=== PATIENT | male | born 1955 | race Caucasian/White ===

== ENCOUNTER → 2016-10-18 | Outpatient (CLI) | payer BC ==
[2016-10-18 15:09] LABS: Blood Urea Nitrogen 15 mg/dL (9-20); Non-African American GFR(MDRD) >60 (>60 ml/min/1.73 sqM)
== END | disposition home or self-care (01) ==
LOC: LABWHC1 14:12
PROVIDERS: ATTEND Surgery Vascular Surgery
DX: I87.8 Other specified disorders of veins (principal)
CPT/HCPCS: 36415; 82565; 84520

== ENCOUNTER → 2019-07-31 | Outpatient (CLI) | payer BC ==
--- NOTE | 2019-07-31 13:48 | MR ---
EXAMINATION TYPE: MR iac wo/w con DATE OF EXAM: 07/31/2019 COMPARISON: HISTORY: Hearing loss, left TECHNIQUE: Multiplanar, multisequence images of the internal auditory canals with small [id number] and high r esolution images is performed without and with IV contrast, utilizing 13 mL intravenous Gadavist . FINDINGS: Diffusion weighted images demonstrate no evidence of a recent infarct or other diffusion ab normality. There is no extra-axial fluid collection or significant white matter signal abnormality. The ventricular system and cisternal spaces are normal in size and appearance. There is cerebral spi nal fluid signal intensity focus posterior to the cerebellum to the left of midline and in the midlin e, area measures approximately 5.1 cm in greatest transverse dimension by 3.4 cm in AP dimension by 2 .5 cm in cephalad to caudal dimension and show some local mass effect on the cerebellum consistent wi th arachnoid cyst. No evident cerebellopontine angle mass. Internal auditory canals show symmetric ap pearance with ectatic appearance bilaterally, are within normal limits. The brain volume is age appro priate. Midline structures demonstrate partially empty sella, corpus callosum is normal as is the cervical me dullary junction. The craniocervical junction appears within normal limits. Post contrast images de monstrate no abnormal enhancement. The dural venous sinuses appear patent. The visualized sinuses are remarkable for some minimal mucosal disease in the maxillary sinuses, ethmoid air cells, and the isaac bes are intact. IMPRESSION: There is an arachnoid cyst in the posterior fossa. No evident cerebellopontine angle mass . Ectatic appearance along the internal auditory canals are symmetric and likely normal variant juan daniel recinos.
== END | disposition home or self-care (01) ==
LOC: RADMRIMAIN 09:45
PROVIDERS: ATTEND Otolaryngology
DX: G93.0 Cerebral cysts (principal); H91.92 Unspecified hearing loss, left ear
CPT/HCPCS: 70553; A9585

== ENCOUNTER → 2021-01-06 | Outpatient (CLI) | payer MEDICARE | END | disposition home or self-care (01) | LOC: LABWHC1 08:49 | PROVIDERS: ATTEND Internal Medicine Interventional Cardiology | DX: I25.10 Atherosclerotic heart disease of native coronary artery without angina pectoris (principal); E05.90 Thyrotoxicosis, unspecified without thyrotoxic crisis or storm | CPT/HCPCS: 36415; 84439; 84443 ==

== ENCOUNTER → 2021-04-14 | Outpatient (CLI) | payer MEDICARE ==
[2021-04-14 16:39] LABS: African American GFR (CKD) 71 (>60 ml/min/1.73 sqM); Blood Urea Nitrogen 31 mg/dL (9-20); Calcium 9.7 mg/dL (8.4-10.2); Chloride 83 mmol/L (98-107); Glucose 169 mg/dL (74-99); Non-African American GFR(CKD) 62 (>60 ml/min/1.73 sqM); Potassium 3.3 mmol/L (3.5-5.1); Sodium 137 mmol/L (137-145)
[2021-04-14 17:28] LABS: Anion Gap 13 mmol/L; Carbon Dioxide 41 mmol/L (22-30)
== END | disposition home or self-care (01) ==
LOC: LABWHC1 15:42
PROVIDERS: ATTEND Internal Medicine Interventional Cardiology
DX: I50.9 Heart failure, unspecified (principal); I25.10 Atherosclerotic heart disease of native coronary artery without angina pectoris
CPT/HCPCS: 36415; 80048; 83735

== ENCOUNTER → 2021-04-19 | Outpatient (CLI) | payer MEDICARE ==
[2021-04-19 18:47] LABS: HCT 38.1 % (39.6-50.0); HGB 12.6 g/dL (13.0-17.0); MCH 31.7 pg (27.0-32.0); MCHC 33.1 g/dL (32.0-37.0); MCV 95.7 fL (80.0-97.0); Mean Platelet Volume 9.6 fL (9.5-12.2); Platelet Count 350 X 10*3/uL (140-440); RBC 3.98 X 10*6/uL (4.40-5.60); RDW 13.4 % (11.5-14.5); WBC 9.52 X 10*3/uL (4.50-10.00)
[2021-04-20 05:58] LABS: African American GFR (CKD) 59.8 (60.0-200.0); Anion Gap 14.8 mmol/L (4.00-12.00); BUN/Creat Ratio 27.86 Ratio (12.00-20.00); Calcium 9.9 mg/dL (8.7-10.3); Carbon Dioxide 38.2 mmol/L (21.6-31.8); Non-African American GFR(CKD) 51.6 (60.0-200.0); Potassium 3.5 mmol/L (3.5-5.5)
== END | disposition home or self-care (01) ==
LOC: LABWHC1 12:24
PROVIDERS: ATTEND Internal Medicine Interventional Cardiology
DX: I25.10 Atherosclerotic heart disease of native coronary artery without angina pectoris (principal); I50.9 Heart failure, unspecified
CPT/HCPCS: 36415; 80048; 85027

== ENCOUNTER → 2021-04-28 | Outpatient (CLI) | payer MEDICARE ==
[2021-04-28 15:26] LABS: HCT 39.1 % (39.0-53.0); HGB 13.2 gm/dL (13.0-17.5); MCH 32.7 pg (25.0-35.0); MCHC 33.8 g/dL (31.0-37.0); MCV 96.8 fL (80.0-100.0); Mean Platelet Volume 8.1; Platelet Count 361 k/uL (150-450); RBC 4.04 m/uL (4.30-5.90); WBC 10.5 k/uL (3.8-10.6)
[2021-04-28 15:37] LABS: Potassium 3.3 mmol/L (3.5-5.1)
== END | disposition home or self-care (01) ==
LOC: LABPAT 14:44
PROVIDERS: ATTEND Internal Medicine Clinical Cardiac Electrophysiology
DX: Z01.812 Encounter for preprocedural laboratory examination (principal); I48.3 Typical atrial flutter
CPT/HCPCS: 36415; 80051; 82565; 84520; 85027

== ENCOUNTER 2021-05-05 11:56 | Day surgery (SDC) | payer MEDICARE ==
[2021-05-04 08:49] VITALS: BMI 43.0
[2021-05-05] MEDS ORDERED: SODIUM CHLORIDE 0.9% 1,000 ML IV ONE (12:17)
[2021-05-05 12:28] LABS: Glucose,Whole Blood 180 mg/dL (75-99)
[2021-05-05] MEDS ORDERED: LIDOCAINE 1% INJ 10MG/ML (20 ML MDV) ONE ×2 (16:20→16:28)
[2021-05-05] MEDS ORDERED: METOPROLOL TARTRATE 5 MG/5 ML VIAL IVP ONE (16:28)
[2021-05-05] MEDS ORDERED: ROCURONIUM 10 MG/ML (5 ML VIAL) IV ONE ×2 (16:28)
[2021-05-05] MEDS ORDERED: SUGAMMADEX SODIUM 500 MG/5 ML SDV IV ONE (16:28)
[2021-05-05] MEDS ORDERED: GLYCOPYRROLATE 0.2 MG/ML 2 ML VIAL ONE (16:28)
[2021-05-05] MEDS ORDERED: fentaNYL (PF) 50 MCG/ML 2 ML AMP ONE (16:28)
[2021-05-05] MEDS ORDERED: NEOSTIGMINE 1 MG/ML 10 ML VIAL ONE (16:28)
[2021-05-05] MEDS ORDERED: SUCCINYLCHOLINE CHLORIDE VIAL 200 MG/10 ML VIAL IV ONE (16:28)
[2021-05-05] MEDS ORDERED: PROPOFOL 10 MG/ML 20 ML VIAL IV ONE (16:28)
[2021-05-05] MEDS ORDERED: LIDOCAINE 1% INJ 10MG/ML (20 ML MDV) SQ ONE (17:09)
[2021-05-05] MEDS ORDERED: HEPARIN SODIUM (1,000 UNIT/ML) 1,000 UNIT in SODIUM CHLORIDE 0.9% 1,000 ML IRRIGATION ONE (17:25)
--- NOTE | 2021-05-05 19:17 | P.EPPROC ---
- EP Procedure Note Electrophysiology Procedure Note: Diagnosis Typical atrial flutter noted as an outpatient Patient brought in for atrial flutter ablation Procedure Diagnostic EP study/Typical atrial flutter ablation Cardioversion for atrial fibrillation Details of procedure Patient was brought to the EP lab in a fasting state. Written informed consent was obtained prior to the procedure. The right and left groins were prepped and draped as a protocol 1% lidocaine was used for local anesthesia The procedure was performed under general anesthesia He was found to be in atrial fibrillation start study Venous access was obtained from the right left femoral veins and Bi V these diagnostic mapping and ablation catheter placed intracardiac echo cath was placed Intracardiac echocardiography revealed no evidence for intracardiac mass or thrombus. No mass in the left atrial appendage Electrical cardioversion was performed 200 J biphasic shock was successfully cardiovert to the patient to sinus rhythm Intracardiac echocardiography was performed 3-D electro-anatomic mapping was performed The cavo tricuspid isthmus was mapped RF ablation was performed A complete line of block was made from the tricuspid annulus to the eustachian ridge This line was interrogated with differential pacing, bidirectional block noted Isthmus conduction time greater than 200 milliseconds Widely split potentials along the line Non-capture along the line with high output pacing Sinus cycle length in the 700s Sinus node recovery times at 605 100 ms were 900 ms and 1023 ms Corresponding chronic sinus recovery times abnormal AV node Wenckebach block 480 ms AH interval 65 ms and HV interval 58 ms QRS showed a right bundle branch block pattern 176 ms Intracardiac echo revealed left ventricle hypertrophy, severe with preserved systolic function No pericardial effusion before or after the procedure Patient called the procedure well without any acute complications Vascade closure of all puncture sites performed successfully
[2021-05-05] MEDS ORDERED: ACETAMINOPHEN IV (For NPO) 1,000 MG in EMPTY BAG 1 BAG IVPB ONE (19:18)
[2021-05-05] MEDS ORDERED: ACETAMINOPHEN TAB 325 MG TAB PO PRN (19:18)
--- NOTE | 2021-05-05 19:23 | P.PRLE ---
RE: Remy Gupta Dear Johnathon Mr. Gupta underwent a diagnostic EP study and typical atrial flutter ablation However he was also in atrial fibrillation and he had to undergo electrical cardioversion I asked him to reduce the dose of metoprolol but he must continue ELIQUIS I suspect that we will see persistent atrial fibrillation in the near future which will have to be addressed to Needless to say, Sleep apnea assessment and minimizing alcohol intake would be crucial to future success with A. fib management Thank you for entrusting me with the care of the patient Warm regards Sincerely Robert Vicente
[2021-05-05] MEDS ORDERED: HYDROmorphone 0.5 MG/0.5 ML SYRINGE IVP ONE (19:30)
[2021-05-05] MEDS ORDERED: ACETAMINOPHEN IV (For NPO) 1,000 MG/100 ML VIAL IVPB ONE (19:32)
[2021-05-05] MEDS ORDERED: LABETALOL 5 MG/ML VIAL MDV IVP ONE (19:54)
[2021-05-05] MEDS: LACTATED RINGERS 1,000 ML IV SCH (20:37)
[2021-05-05 20:46] VITALS: RESP 20
[2021-05-05 21:26] LABS: Glucose,Whole Blood 164 mg/dL (75-99)
[2021-05-05] MEDS: APIXABAN 5 MG TAB PO SCH (22:09)
[2021-05-05] MEDS: SODIUM CHLORIDE 0.9% 1,000 ML IV SCH (22:09)
[2021-05-06 02:24] VITALS: PULSE 79
[2021-05-06] MEDS: LACTATED RINGERS 1,000 ML IV SCH (05:21)
[2021-05-06] MEDS: SODIUM CHLORIDE 0.9% 1,000 ML IV SCH (06:08)
[2021-05-06] MEDS ORDERED: NITROGLYCERIN SL TABS 0.4 MG TAB SUBLINGUAL PRN (07:42)
[2021-05-06] MEDS ORDERED: MECLIZINE 25 MG TAB PO PRN (07:42)
[2021-05-06 08:21] VITALS: BP 146/81; TEMP 98
[2021-05-06] MEDS: APIXABAN 5 MG TAB PO SCH (08:49)
[2021-05-06] MEDS ORDERED: METOPROLOL TARTRATE 25 MG TAB PO SCH (09:00)
[2021-05-06] MEDS ORDERED: ASPIRIN 81 MG PO SCH (09:00)
[2021-05-06] MEDS ORDERED: FUROSEMIDE 40 MG TAB PO SCH (09:00)
[2021-05-06] MEDS ORDERED: hydroCHLOROthiazide 25 MG TAB PO SCH (09:00)
[2021-05-06] MEDS ORDERED: ASCORBIC ACID 500 MG TAB PO SCH (09:00)
[2021-05-06] MEDS ORDERED: NON FORMULARY DRUG (Empagliflozin [Jardiance] 25 MG Tablet) PO SCH (09:00)
[2021-05-06] MEDS ORDERED: FERROUS SULFATE 325 MG TAB PO SCH (09:00)
[2021-05-06] MEDS ORDERED: POTASSIUM CHLORIDE ER 20 MEQ TAB.ER PO SCH (09:00)
--- NOTE | 2021-05-06 11:23 | P.PN ---
Progress Note - Text Progress Note Date: 05/06/21 Patient has difficulty ambulating and requires a cane at the time of discharge to ensure safety and to prevent falls. Case management notified of equipment needs.
--- NOTE | 2021-05-06 19:44 | DS ---
DISCHARGE SUMMARY The patient was admitted for management of atrial flutter which is quite symptomatic with tiredness, fatigue and shortness of breath. He underwent atrial flutter ablation. However, he was found to be in atrial fibrillation also and therefore electrical cardioversion was performed. This morning, his groins have healed well. Heart sounds are regular and normal. Breath sounds are clear. He does have lower extremity edema with weeping along the skin. He also has left ventricular hypertrophy. IMPRESSION: 1. Typical atrial flutter, status post ablation. 2. Persistent atrial fibrillation, status post electrical cardioversion. 3. Hypertension. 4. Obstructive sleep apnea. PLAN: 1. Discharge home today on anticoagulation. The dose of metoprolol has been reduced to 75 mg twice daily. The afternoon dose has been discontinued. He will follow up with Dr. Santiago in a week. He already has appointment. Anticoagulation should continue lifelong. 2. I discussed the importance of prevention of atrial fibrillation with weight reduction, sleep apnea treatment, minimizing alcohol intake, preferably complete abstinence and hypertension management. The patient expressed an understanding and agreement. AL / BRANDENN: [id number] /
[2021-05-06] MEDS ORDERED: ATORVASTATIN 80 MG TAB PO SCH (21:00)
== END 2021-05-06 13:30 | disposition home or self-care (01) ==
LOC: CATHEP 11:56 → 6NMEDSUR 20:21 → CATHEP 05-06 13:30
PROVIDERS: ATTEND Internal Medicine Clinical Cardiac Electrophysiology
DX: I48.3 Typical atrial flutter (principal); I10 Essential (primary) hypertension; G47.33 Obstructive sleep apnea (adult) (pediatric); I48.91 Unspecified atrial fibrillation; E11.9 Type 2 diabetes mellitus without complications; F17.200 Nicotine dependence, unspecified, uncomplicated
CPT/HCPCS: 92960; 93623; 93662; 93653; 97162; C1894; C1769 ×2; C1760; C1730; C1759; C1893; C1732; J0330; J2710; J2001; J3010; J1644; J0131; J2704; J1170

== ENCOUNTER → 2021-08-09 | Outpatient (CLI) | payer MEDICARE ==
[2021-08-09 21:57] LABS: African American GFR (CKD) 72.3 (60.0-200.0); Anion Gap 19.9 mmol/L (4.00-12.00); BUN/Creat Ratio 26.72 Ratio (12.00-20.00); Blood Urea Nitrogen 31.8 mg/dL (9.0-27.0); Calcium 9.7 mg/dL (8.7-10.3); Carbon Dioxide 32.7 mmol/L (21.6-31.8); Non-African American GFR(CKD) 62.4 (60.0-200.0); Potassium 3.8 mmol/L (3.5-5.5)
== END | disposition home or self-care (01) ==
LOC: LABWHC1 13:49
PROVIDERS: ATTEND Family Medicine
DX: R60.0 Localized edema (principal)
CPT/HCPCS: 36415; 80048

== ENCOUNTER 2021-08-11 07:46 | Inpatient (IN) | payer MEDICARE ==
[~2021-08-11 07:46] MED LIST: LIDOCAINE 1% (10MG/ML) FOR IV START INTRADERMA PRN
[2021-08-11 08:11] LABS: Glucose,Whole Blood 163 mg/dL (75-99)
[2021-08-11] MEDS: SODIUM CHLORIDE 0.9% 1,000 ML IV SCH ×2 (08:14→10:00)
[2021-08-11] MEDS ORDERED: PROPOFOL 10 MG/ML 20 ML VIAL IV ONE (09:00)
[2021-08-11] MEDS ORDERED: DEXTROSE 5% IN WATER 100 ML with AMIODARONE 300 MG IV ONE (09:30)
[2021-08-11] MEDS ORDERED: AMIODARONE 300 MG in D5W 250ml IV ONE (09:45)
[2021-08-11] MEDS ORDERED: MECLIZINE 25 MG TAB PO PRN (09:46)
[2021-08-11] MEDS ORDERED: AMIODARONE 360 MG in DEXTROSE 5% IN WATER 200 ML IV ONE ×2 (09:48)
[2021-08-11] MEDS ORDERED: FUROSEMIDE 10 MG/ML 4 ML VIAL IV STA (09:49)
--- NOTE | 2021-08-11 10:47 | HP ---
HISTORY AND PHYSICAL This is a 66-year-old morbidly obese gentleman with history of CAD, previous multivessel PCI of LAD and RCA. He also has obstructive sleep apnea, just started wearing CPAP. He has hypertension, diabetes, hyperlipidemia as well. He has developed atrial flutter, symptomatic and with rate control he improved in April. He went on to have an EP study followed by ablation of flutter, then had atrial fibrillation and required cardioversion. Since then he has done well, but for the last 3-4 weeks, he has gained over 20 pounds significant edema of lower extremities and shortness of breath. I saw him in the office yesterday and he was very faithful and compliant with the Eliquis 5 mg b.i.d. and therefore I brought him for cardioversion today. Electrical cardioversion was performed. He converted to sinus rhythm. He remains in sinus with a right bundle and PACs. His potassium was 3.8. However, he has significant heart failure clinically with an elevated JVD, significant lower extremity edema and weight gain. We will admit him to the hospital, aggressively diurese him intravenously and based on clinical course, we will make further recommendations. I will admit him to the observation unit and see if we can diurese him in the next 24 hours. PAST MEDICAL HISTORY: 1. CAD with multivessel PCI. 2. Obesity. 3. Hypertension. 4. Hyperlipidemia. 5. Type 2 diabetes mellitus. 6. Obstructive sleep apnea, wears CPAP for 3 weeks. ALLERGIES: THE PATIENT HAS A SIGNIFICANT ALLERGY TO MILLY AND ARB AND HAS DEVELOPED A SIGNIFICANT REACTION AND THEREFORE THESE MEDICINES WERE HELD. MEDICATIONS: Include aspirin 81 mg daily, Eliquis 5 mg b.i.d., Lipitor 80 mg daily, he also takes metolazone 5 mg daily, Lasix 40 mg daily, Jardiance 25 mg daily and metoprolol tartrate 25 mg 2 tablets b.i.d. EXAMINATION: Blood pressure is 120/80, pulse rate is about 80 per minute, irregular. HEENT unremarkable fundus was not examined. NECK is supple. There is 2 cm JVD. No carotid bruit. HEART exam reveals S1-S2 distant heart sounds, short systolic murmur. LUNGS revealed diminished air entry over bases. ABDOMEN is distended. Lower EXTREMITIES reveal 3 to 4+ edema with seeping edematous legs. Pulses are not palpable. CENTRAL NERVOUS SYSTEM: Grossly no focal deficits. IMPRESSION: 1. Biventricular probably more right-sided systolic heart failure. 2. Persistent atrial fibrillation, symptomatic. 3. Coronary artery disease with multivessel PCI. 4. Hypertension. 5. Type 2 diabetes mellitus. 6. Obstructive sleep apnea with CPAP. 7. Status post electrical cardioversion earlier today in sinus rhythm. RECOMMENDATIONS: We will place him on IV amiodarone, bolus of 300 mg and 6 hours of infusion followed by oral amiodarone. Lasix will be at 40 mg IV push and a 10 mg drip with potassium supplements. Resume his other medications. Tomorrow we will obtain a CBC, BMP and based on clinical course, I will make further recommendations. The patient has been advised to refrain from alcohol which seems to be a significant contributing factor. Prognosis remains guarded. MMODL / IJN: [id number] /
--- NOTE | 2021-08-11 11:03 | PCN ---
PROCEDURE NOTE PROCEDURE: Electrical cardioversion. DATE OF SERVICE: 08/11/2021. INDICATION: Persistent symptomatic atrial fibrillation. PROCEDURE NOTE: Under the influence of ultra short-acting intravenous anesthetic agent with the attendance of the anesthesiologist, a single shock of 200 joules was delivered to the chest wall with anterior and posterior patches in a synchronized fashion. He converted to sinus rhythm, had PACs, remained hemodynamically stable and neurologically intact. This was a successful electrical cardioversion. Results were discussed with the patient and family. I will keep him in the hospital to diurese him aggressively and also will give him amiodarone intravenously, then switch him to oral amiodarone after that. Discussed my thoughts with the patient and family. MMODL / IJN: [id number] /
[2021-08-11] MEDS: FUROSEMIDE 100 MG in SODIUM CHLORIDE 0.9% 90 ML IV SCH ×2 (12:16→20:40)
[2021-08-11] MEDS ORDERED: AMIODARONE IN DEXTROSE,ISO-OSM 360 MG/200 ML PLAST..BAG IV ONE (12:16)
[2021-08-11] MEDS: LACTATED RINGERS 1,000 ML IV SCH (14:57)
[2021-08-11 16:35] LABS: Glucose,Whole Blood 187 mg/dL (75-99)
[2021-08-11] MEDS: metFORMIN 500 MG TAB PO SCH (17:42)
[2021-08-11] MEDS: INSULIN ASPART (NovoLOG) 100 UNIT/ML VIAL SQ SCH ×2 (17:48→21:55)
[2021-08-11] MEDS: AMIODARONE 200 MG TAB PO SCH ×2 (17:49→21:56)
[2021-08-11 19:42] LABS: Glucose,Whole Blood 172 mg/dL (75-99)
[2021-08-11] MEDS ORDERED: METOPROLOL TARTRATE 25 MG TAB PO SCH (21:00)
[2021-08-11] MEDS: APIXABAN 5 MG TAB PO SCH (21:56)
[2021-08-11] MEDS: ATORVASTATIN 80 MG TAB PO SCH (21:56)
[2021-08-11] MEDS: METOPROLOL TARTRATE 50 MG TAB PO SCH (21:57)
[2021-08-11] MEDS: TEMAZEPAM 15 MG CAP PO PRN (23:11)
[2021-08-12] MEDS: FUROSEMIDE 100 MG in SODIUM CHLORIDE 0.9% 90 ML IV SCH ×2 (04:08→14:24)
[2021-08-12] MEDS: LACTATED RINGERS 1,000 ML IV SCH (04:29)
[2021-08-12 06:16] LABS: Glucose,Whole Blood 153 mg/dL (75-99)
[2021-08-12] MEDS: metFORMIN 500 MG TAB PO SCH ×2 (06:24→17:07)
[2021-08-12] MEDS: INSULIN ASPART (NovoLOG) 100 UNIT/ML VIAL SQ SCH ×4 (06:25→21:11)
[2021-08-12] MEDS: POTASSIUM CHLORIDE ER 20 MEQ TAB.ER PO SCH ×5 (06:48→21:24)
[2021-08-12 07:31] LABS: Basophils % (A) 0 %; Eosinophils # (A) 0.3 k/uL (0-0.7); Eosinophils % (A) 4 %; HCT 34.8 % (39.0-53.0); HGB 11.4 gm/dL (13.0-17.5); Lymphocytes % (A) 14 %; MCH 32.1 pg (25.0-35.0); MCHC 32.8 g/dL (31.0-37.0); Mean Platelet Volume 6.9; Monocytes # (A) 0.5 k/uL (0-1.0); Monocytes % (A) 7 %; Neutrophils # (A) 5.2 k/uL (1.3-7.7); Neutrophils % (A) 72 %; Platelet Count 355 k/uL (150-450); RBC 3.55 m/uL (4.30-5.90); RDW 14.7 % (11.5-15.5); WBC 7.2 k/uL (3.8-10.6)
[2021-08-12 07:44] LABS: Calcium 9.4 mg/dL (8.4-10.2); Magnesium 1.8 mg/dL (1.6-2.3); Potassium 3.2 mmol/L (3.5-5.1)
[2021-08-12] MEDS: ASPIRIN 81 MG PO SCH (08:23)
[2021-08-12] MEDS: APIXABAN 5 MG TAB PO SCH ×2 (08:23→21:20)
[2021-08-12] MEDS: METOPROLOL TARTRATE 50 MG TAB PO SCH ×2 (08:23→21:20)
[2021-08-12] MEDS: ASCORBIC ACID 500 MG TAB PO SCH (08:23)
[2021-08-12] MEDS: AMIODARONE 200 MG TAB PO SCH ×3 (08:23→21:21)
[2021-08-12] MEDS: FERROUS SULFATE 325 MG TAB PO SCH (08:23)
[2021-08-12] MEDS: SODIUM CHLORIDE 0.9% 1,000 ML IV SCH ×2 (08:27→11:00)
[2021-08-12] MEDS ORDERED: hydroCHLOROthiazide 25 MG TAB PO SCH (09:00)
[2021-08-12] MEDS ORDERED: POTASSIUM CHLORIDE ER 20 MEQ TAB.ER PO SCH (09:00)
[2021-08-12] MEDS ORDERED: Potassium Replacement Protocol 1 EACH MISC MISCELLANE PRN (10:44)
[2021-08-12] MEDS: Empagliflozin [Jardiance] PO SCH (11:00)
--- NOTE | 2021-08-12 11:36 | ECHOF ---
Referral Reason:LV FUNCTION MEASUREMENTS -------- HEIGHT: 180.3 cm WEIGHT: 140.2 kg BP: RVIDd: 3.2 cm (< 3.3) IVSd: 1.5 cm (0.6 - 1.1) LVIDd: 5.2 cm (3.9 - 5.3) LVPWd: 1.7 cm (0.6 - 1.1) IVSs: 2.4 cm LVIDs: 3.0 cm LVPWs: 1.8 cm Ao Diam: 3.6 cm (2.0 - 3.7) AV Cusp: 2.4 cm (1.5 - 2.6) LA Diam: 3.8 cm (2.7 - 3.8) MV EXCURSION: 20.607 mm (> 18.000) MV EF SLOPE: 41 mm/s (70 - 150) EPSS: 1.2 cm MV E Watson: 0.93 m/s MV DecT: 187 ms MV A Watson: 0.51 m/s MV E/A Ratio: 1.81 RAP: 5.00 mmHg RVSP: 36.61 mmHg FINDINGS -------- This was a technically difficult study with suboptimal views. The left ventricular size is normal. There is moderate concentric left ventricular hypertrophy. O verall left ventricular systolic function is normal with, an EF between 55 - 60 %. The right ventricle is mildly enlarged. The left atrial size is normal. The right atrial size is normal. Lumason used The aortic valve is trileaflet and appears structurally normal. The mitral valve is normal. Mild mitral regurgitation is present. The tricuspid valve appears structurally normal. Mild tricuspid regurgitation present. There is m ild pulmonary hypertension. The right ventricular systolic pressure, as measured by Doppler, is 36. 61mmHg. There is no pulmonic regurgitation present. The aortic root size is normal. IVC Not well visulized. There is no pericardial effusion. CONCLUSIONS -------- 1. The left ventricular size is normal. 2. There is moderate concentric left ventricular hypertrophy. 3. Overall left ventricular systolic function is normal with, an EF between 55 - 60 %. 4. The right ventricle is mildly enlarged. 5. Mild mitral regurgitation is present. 6. Mild tricuspid regurgitation present. 7. There is mild pulmonary hypertension. 8. The right ventricular systolic pressure, as measured by Doppler, is 36.61mmHg. 9. There is no pericardial effusion. CARE CONSULTANT: Alina Gonzalez RDCS
[2021-08-12 11:44] LABS: Glucose,Whole Blood 134 mg/dL (75-99)
--- NOTE | 2021-08-12 12:28 | PN ---
PROGRESS NOTE Mr. Gupta is in sinus rhythm. I admitted him yesterday because of atrial fib symptomatic with significant heart failure symptoms of and more so of right-sided failure. I performed cardioversion. He converted to sinus rhythm. He is maintaining sinus rhythm and I placed him on a Lasix drip. He diuresed very well. He lost more than 7.5 L of fluid and also lost nearly 8-9 pounds. He is in sinus, resting comfortably. Complains of being a little weak. Potassium was 3.0. This is being supplemented. Plan is to continue IV Lasix drip for at least for another 24 hours and then we will consider discharge after that. He has history of CAD, prior multivessel PCI, bilateral lower extremity edema is significant with some weeping and also mild cellulitis for which I started him on a Kefzol 1 g q.6 hours. He was also seen by Dr. Hurley at my request for wound care, who advised Silvadene dressings and antibiotics. We will increase activity and see how he does. He is currently on Eliquis 5 mg b.i.d. Vitals signs are stable. JVD 1 cm. No carotid bruit. S1-S2 heard normally. Short systolic murmur. Lungs revealed decent air entry. Abdomen is soft. Lower extremity edema is significant bilaterally but improved. PLAN: We will continue diuresis, supplement potassium. Repeat electrolytes, BUN, creatinine tomorrow and also magnesium. Advised to refrain from alcohol altogether. I will review his echocardiogram. MMODL / IJN: [id number] /
[2021-08-12 16:35] LABS: Glucose,Whole Blood 146 mg/dL (75-99)
[2021-08-12 19:47] VITALS: TEMP 97.9
[2021-08-12 19:59] LABS: Glucose,Whole Blood 208 mg/dL (75-99)
[2021-08-12 20:01] LABS: Glucose,Whole Blood 178 mg/dL (75-99)
[2021-08-12] MEDS: TEMAZEPAM 15 MG CAP PO PRN (21:19)
[2021-08-12] MEDS: ATORVASTATIN 80 MG TAB PO SCH (21:21)
[2021-08-13] MEDS: FUROSEMIDE 100 MG in SODIUM CHLORIDE 0.9% 90 ML IV SCH (00:06)
[2021-08-13] MEDS: LACTATED RINGERS 1,000 ML IV SCH (06:05)
[2021-08-13 06:16] LABS: Glucose,Whole Blood 164 mg/dL (75-99)
[2021-08-13] MEDS: INSULIN ASPART (NovoLOG) 100 UNIT/ML VIAL SQ SCH ×2 (06:30→12:12)
[2021-08-13] MEDS: metFORMIN 500 MG TAB PO SCH (06:30)
[2021-08-13] MEDS ORDERED: FUROSEMIDE 10 MG/ML 4 ML VIAL IV SCH (08:00)
[2021-08-13] MEDS ORDERED: metOLazone 5 MG TAB PO SCH (09:00)
[2021-08-13] MEDS ORDERED: METOPROLOL TARTRATE 25 MG TAB PO SCH ×2 (09:00→21:00)
[2021-08-13] MEDS: FERROUS SULFATE 325 MG TAB PO SCH (09:01)
[2021-08-13] MEDS: POTASSIUM CHLORIDE ER 20 MEQ TAB.ER PO SCH (09:01)
[2021-08-13] MEDS: ASPIRIN 81 MG PO SCH (09:01)
[2021-08-13] MEDS: ASCORBIC ACID 500 MG TAB PO SCH (09:02)
[2021-08-13] MEDS: APIXABAN 5 MG TAB PO SCH (09:02)
[2021-08-13] MEDS: Empagliflozin [Jardiance] PO SCH (09:02)
[2021-08-13] MEDS: AMIODARONE 200 MG TAB PO SCH (09:02)
[2021-08-13 09:11] VITALS: RESP 16
[2021-08-13 09:28] LABS: HCT 34.4 % (39.0-53.0); HGB 11.6 gm/dL (13.0-17.5); MCH 32.5 pg (25.0-35.0); MCHC 33.5 g/dL (31.0-37.0); Mean Platelet Volume 6.9; Platelet Count 383 k/uL (150-450); RBC 3.55 m/uL (4.30-5.90); RDW 14.5 % (11.5-15.5); WBC 8.1 k/uL (3.8-10.6)
[2021-08-13 09:53] LABS: Calcium 9.2 mg/dL (8.4-10.2); Potassium 3.2 mmol/L (3.5-5.1)
[2021-08-13 11:49] LABS: Glucose,Whole Blood 120 mg/dL (75-99)
[2021-08-13] MEDS ORDERED: POTASSIUM CHLORIDE ER 20 MEQ TAB.ER PO SCH (12:00)
[2021-08-13 12:23] VITALS: BP 122/65; PULSE 68
--- NOTE | 2021-08-13 15:10 | DS ---
DISCHARGE SUMMARY DATE OF ADMISSION: 08/11/2021 DATE OF DISCHARGE: 08/13/2021. DIAGNOSES: 1. Persistent atrial fibrillation. 2. Significant edema, anasarca with right-sided failure. 3. Coronary artery disease with history of prior PCI multiple vessels. 4. Type 2 diabetes. 5. Hypertension. 6. Hypercholesterolemia. HISTORY: Mr. Gupta was brought in for electrical cardioversion on August 11 because of atrial fibrillation. I performed a cardioversion successfully with a single shock of 200 joules. He had a significant volume overload and has gained about 22 pounds over the last 4 weeks. I advised that he should be in the hospital and we will diurese him aggressively because of massive edema of both lower extremities as well as the lower abdomen and upper thighs as well. We placed him on intravenous Lasix drip and with this he diuresed nearly 12-13 L and lost about 12 pounds. He developed some hypokalemia requiring replacement therapy. He maintained sinus rhythm. He also has some cellulitis of lower extremities with weeping of the areas. I requested Dr. Hurley to evaluate him. He was seen by Dr. Hurley. I placed him on Kefzol 1 g q.8 hours. After aggressive diuresis, patient insisted on going home. Therefore I will discharge him today around 3:00 pm or so and he will be on Keflex 500 mg t.i.d. for 1 week, he will also be on Jardiance at home 25 mg daily, Lipitor 80 mg daily, aspirin 81 mg daily, apixaban 5 mg b.i.d., amiodarone 200 mg t.i.d., Lasix will be 40 mg p.o. b.i.d. with metolazone 2.5 mg, 45 minutes before a.m. Lasix, metformin 1000 mg b.i.d., metoprolol tartrate 75 mg b.i.d., potassium 20 mEq t.i.d., his potassium was low at 3.2. I gave him some additional supplements. I will see him in the office on August 17 and he will call me if he has a question, concern or problem. Vital signs were stable. Heart rate was about 82, sinus. JVD 1 cm. No carotid bruit. S1-S2 heard normally but distantly short systolic murmur at the base. Lungs reveal improved air entry. Abdomen is distended, nontender. Lower extremities reveal improvement in edema. Pulses diminished. Central nervous system: No focal deficits. EKG revealed sinus mechanism, right bundle branch block pattern and PACs. PLAN: Discharge today. Follow up in the office within a week. Discharge instructions regarding activity, medications and diet were given. Advised to refrain from alcohol and any salt containing foods. Low-salt diet was encouraged. MMODL / IJN: [id number] /
[2021-08-14] MEDS ORDERED: metOLazone 2.5 MG TAB PO SCH (09:00)
--- NOTE | 2021-08-16 06:40 | CDI ---
Documentation Clarification Form Date: 08/16/21 From: Milagros Parson Admit Date: 08/12/2021 01:14:00 PM Patient Name: Remy Gupta Visit Number: [id number] Discharge Date: 08/13/2021 03:33:00 PM ATTENTION: The Clinical Documentation Specialists (CDI) and [facility] Coding Staff appreciate your assistance in clarifying documentation. Please respond to the clarification below the line at the bottom and electronically sign. The CDI & [facility] Coding staff will review the response and follow-up if needed. Please note: Queries are made part of the Legal Health Record. If you have any questions, please contact the author of this message via ITS. Dr. Sheryl Santiago, There is documentation of systolic congestive heart failure in the H&P. Additional clarification is requested. History/Risk Factors: atrial flutter ablated, hypertension, persistent atrial fibrillation cardioverted, CAD w PCI Clinical Indicators: Gained 20 pounds in the last 3-4 weeks with SOB. Elevated JVD, significant lower extremity edema. Treatment: Aggressively diurese Can you please clarify the acuity of systolic CHF? [ ] Acute systolic CHF [ ] Chronic systolic CHF [ ] Acute and chronic systolic CHF [ ] Other, please specify [ ] Unable to determine MTDD
--- NOTE | 2021-08-19 10:44 | CDI ---
Documentation Clarification Form Date: 08/16/2021 06:39:00 AM From: Milagros Parson Admit Date: 08/12/2021 01:14:00 PM Patient Name: Remy Gupta Visit Number: [id number] Discharge Date: 08/13/2021 03:33:00 PM ATTENTION: The Clinical Documentation Specialists (CDI) and [facility] Coding Staff appreciate your assistance in clarifying documentation. Please respond to the clarification below the line at the bottom and electronically sign. The CDI & [facility] Coding staff will review the response and follow-up if needed. Please note: Queries are made part of the Legal Health Record. If you have any questions, please contact the author of this message via ITS. Dr. Sheryl Santiago, There is documentation of systolic congestive heart failure in the H&P. Additional clarification is requested. History/Risk Factors: atrial flutter ablated, hypertension, persistent atrial fibrillation cardioverted, CAD w PCI Clinical Indicators: Gained 20 pounds in the last 3-4 weeks with SOB. Elevated JVD, significant lower extremity edema. Treatment: Aggressively diurese Can you please clarify the acuity of systolic CHF? [ ] Acute systolic CHF [ ] Chronic systolic CHF [ ] Acute and chronic systolic CHF [ ] Other, please specify [ ] Unable to determine MTDD
== END 2021-08-13 15:33 | disposition home or self-care (01) | DRG 292 ==
LOC: CATHCVL 07:46 → 3SCARD 09:29 → CATHCVL 08-12 13:14
PROVIDERS: ADMIT Internal Medicine Interventional Cardiology; ATTEND Internal Medicine Interventional Cardiology
PROC: 5A2204Z Restoration of Cardiac Rhythm, Single (ICD-10-PCS; principal; 2021-08-11 08:30)
DX: I11.0 Hypertensive heart disease with heart failure (principal); I48.19 Other persistent atrial fibrillation; L03.115 Cellulitis of right lower limb; L03.116 Cellulitis of left lower limb; I50.82 Biventricular heart failure; I50.813 Acute on chronic right heart failure; E66.01 Morbid (severe) obesity due to excess calories; E11.9 Type 2 diabetes mellitus without complications; Z20.822 Contact with and (suspected) exposure to COVID-19; E87.6 Hypokalemia; G47.33 Obstructive sleep apnea (adult) (pediatric); I25.10 Atherosclerotic heart disease of native coronary artery without angina pectoris; E78.5 Hyperlipidemia, unspecified; E78.00 Pure hypercholesterolemia, unspecified; I45.10 Unspecified right bundle-branch block; Z79.01 Long term (current) use of anticoagulants; Z79.82 Long term (current) use of aspirin; Z79.84 Long term (current) use of oral hypoglycemic drugs; Z79.899 Other long term (current) drug therapy; Z86.79 Personal history of other diseases of the circulatory system; Z98.61 Coronary angioplasty status; Z98.890 Other specified postprocedural states; Z88.8 Allergy status to other drugs, medicaments and biological substances
CPT/HCPCS: 36415; 80048; 83036; 83735; 85025; 85027; 87635; 92960; 93306

== ENCOUNTER → 2021-08-19 | Outpatient (CLI) | payer MEDICARE ==
[2021-08-19 20:49] LABS: African American GFR (CKD) 50.6 (60.0-200.0); Anion Gap 19.3 mmol/L (10.00-18.00); BUN/Creat Ratio 25.25 Ratio (12.00-20.00); Blood Urea Nitrogen 40.4 mg/dL (9.0-27.0); Calcium 9.5 mg/dL (8.7-10.3); Carbon Dioxide 29.7 mmol/L (20.0-27.5); Magnesium 1.7 mg/dL (1.5-2.4); Non-African American GFR(CKD) 43.6 (60.0-200.0); Potassium 3.8 mmol/L (3.5-5.5)
== END | disposition home or self-care (01) ==
LOC: LABWHC1 13:39
PROVIDERS: ATTEND Internal Medicine Interventional Cardiology
DX: I10 Essential (primary) hypertension (principal); I25.10 Atherosclerotic heart disease of native coronary artery without angina pectoris; I48.91 Unspecified atrial fibrillation
CPT/HCPCS: 36415; 80048; 83735

== ENCOUNTER → 2021-08-29 | Outpatient (CLI) | payer MEDICARE ==
[2021-08-30 02:57] LABS: African American GFR (CKD) 44.1 (60.0-200.0); Anion Gap 22.6 mmol/L (10.00-18.00); BUN/Creat Ratio 29.27 Ratio (12.00-20.00); Blood Urea Nitrogen 52.4 mg/dL (9.0-27.0); Calcium 9.4 mg/dL (8.7-10.3); Carbon Dioxide 26.3 mmol/L (20.0-27.5); Non-African American GFR(CKD) 38.1 (60.0-200.0); Potassium 3.8 mmol/L (3.5-5.5)
== END | disposition home or self-care (01) ==
LOC: LABWHC1 13:46
PROVIDERS: ATTEND Internal Medicine Interventional Cardiology
DX: I10 Essential (primary) hypertension (principal); I25.10 Atherosclerotic heart disease of native coronary artery without angina pectoris
CPT/HCPCS: 36415; 80048

== ENCOUNTER → 2021-09-05 | Outpatient (CLI) | payer MEDICARE ==
[2021-09-05 21:09] LABS: Anion Gap 15.3 mmol/L (10.00-18.00); BUN/Creat Ratio 23.77 Ratio (12.00-20.00); Blood Urea Nitrogen 30.9 mg/dL (9.0-27.0); Calcium 9.2 mg/dL (8.7-10.3); Carbon Dioxide 28.7 mmol/L (20.0-27.5); Non-African American GFR(CKD) 56.1 (60.0-200.0); Potassium 4.2 mmol/L (3.5-5.5)
== END | disposition home or self-care (01) ==
LOC: LABWHC1 14:39
PROVIDERS: ATTEND Internal Medicine Interventional Cardiology
DX: I25.10 Atherosclerotic heart disease of native coronary artery without angina pectoris (principal); I10 Essential (primary) hypertension
CPT/HCPCS: 36415; 80048

== ENCOUNTER 2023-03-08 10:40 | Emergency (ER) | payer MEDICARE ==
[2023-03-08 11:06] VITALS: PULSE 60; RESP 18
--- NOTE | 2023-03-08 11:33 | ED ---
Lower Extremity Injury HPI - General Chief Complaint: Extremity Injury, Lower Stated Complaint: Injury to Right Leg Sent by Dr Santiago Time Seen by Provider: 03/08/23 11:11 Source: patient, RN notes reviewed, old records reviewed Mode of arrival: ambulatory Limitations: no limitations - History of Present Illness Initial Comments: Nontoxic-appearing 67-year-old male presents to the emergency room with abrasion to his right mancia that he obtained while getting on a boat in [place] on Sunday. Has been using Neosporin, noticed increased redness and swelling which was worse after getting off the airplane Sunday night, 10 hour flight. States was wearing compression wraps on plane. Patient does have right calf tenderness. Denies any chest pain or shortness of breath. He does have a history of coronary artery disease, hypertension and borderline diabetic. Is currently taking Eliquis. Sent by his primary care Dr. Santiago for evaluation. MD Complaint: leg injury -: week(s) (1) Type of Injury: other (abrasion on boat right mid mancia) Severity scale (1-10): 0 - Related Data Home Medications Medication Instructions Recorded Confirmed Aspirin [Adult Low Dose Aspirin EC] 81 mg PO DAILY 07/25/16 03/08/23 Apixaban [Eliquis] 5 mg PO BID 05/04/21 03/08/23 Ascorbic Acid [Vitamin C] 1,000 mg PO DAILY 05/04/21 03/08/23 EPINEPHrine (Auto Inject) [Epipen] 0.3 mg IM ONCE PRN 05/04/21 03/08/23 Empagliflozin [Jardiance] 25 mg PO DAILY 05/04/21 03/08/23 Ferrous Sulfate [Feosol] 325 mg PO DAILY 05/04/21 03/08/23 Meclizine HCl 25 mg PO BID PRN 05/04/21 03/08/23 Potassium Chloride [Klor-Con 20] 20 meq PO DAILY 05/04/21 03/08/23 metFORMIN HCL [Glucophage] 1,000 mg PO BID 05/04/21 03/08/23 Amiodarone [Cordarone] 200 mg PO DAILY 03/08/23 03/08/23 Furosemide [Lasix] 40 mg PO DAILY 03/08/23 03/08/23 Hydrocortisone Cream 1 applic TOPICAL DAILY 06/15/23 06/15/23 [Hydrocortisone 1% Cream] Previous Rx's Medication Instructions Recorded Atorvastatin [Lipitor] 80 mg PO HS #90 tab 06/02/15 Nitroglycerin Sl Tabs [Nitrostat] 0.4 mg SUBLINGUAL Q5M PRN #25 tab 06/02/15 Metoprolol Tartrate [Lopressor] 75 mg PO BID #180 tab 08/13/21 Bacitracin Zinc/Polymyxin B 1 applic TOPICAL BID 7 Days #15 gm 03/08/23 [Bacitracin-Polymyxin Ointment] Cephalexin [Keflex] 500 mg PO Q6HR #40 cap 03/08/23 Allergies Allergy/AdvReac Type Severity Reaction Status Date / Time No Known Allergies Allergy Verified 03/08/23 13:44 Review of Systems ROS Statement: Those systems with pertinent positive or pertinent negative responses have been documented in the HPI. ROS Other: All systems not noted in ROS Statement are negative. Past Medical History Past Medical History: Coronary Artery Disease (CAD), Chest Pain / Angina, Diabetes Mellitus, Hypertension Additional Past Medical History / Comment(s): Other HX: NIDDM, pericarditis 25- 30 yrs ago, mild diverticulosis per 07/2014 colonoscopy, shingles. History of Any Multi-Drug Resistant Organisms: None Reported Past Surgical History: Ablation, Heart Catheterization With Stent, Orthopedic Surgery, Tonsillectomy Additional Past Surgical History / Comment(s): 06/02/15 PCI with stents in distal RCA and mid LAD. Other sx: 1969 rt knee surgery cartlidge was cleaned, 2013 rt bicep surgery- due to bicep rupture, 07/1014 colonoscopy, ablation apr 2021 Past Anesthesia/Blood Transfusion Reactions: No Reported Reaction Date of Last Stent Placement:: 2014 Past Psychological History: No Psychological Hx Reported Smoking Status: Former smoker Past Alcohol Use History: Occasional Past Drug Use History: None Reported - Past Family History Mother Family Medical History: Dementia Additional Family Medical History / Comment(s): Mother was 83 yrs old when she . Grandfather on mother's side at age 54yrs from [place]. Father Family Medical History: CVA/TIA Additional Family Medical History / Comment(s): Father of brain stem CVA at age 84 yrs. General Exam Limitations: no limitations General appearance: alert Head exam: Present: atraumatic Eye exam: Present: normal appearance. Absent: scleral icterus, conjunctival injection, periorbital swelling ENT exam: Present: mucous membranes moist Respiratory exam: Present: normal lung sounds bilaterally. Absent: respiratory distress, accessory muscle use Cardiovascular Exam: Present: regular rate GI/Abdominal exam: Present: soft Right Knee exam: Absent: tenderness, swelling Lower Leg exam: Present: tenderness, swelling, abrasion, erythema, Homans' sign. Absent: laceration, ecchymosis, deformity, crepitus, dislocation Ankle exam: Present: swelling Foot/Toe exam: Present: swelling Neurovascular tendon exam: Absent: abnormal cap refill, extremity cold to touch, pallor, significant pain with passive ROM of distal joint Neurological exam: Present: alert, oriented X3 Psychiatric exam: Present: normal affect, normal mood Skin exam: Present: warm, dry, normal color. Absent: cyanosis, diaphoretic, petechiae, pallor Course Vital Signs 03/08/23 03/08/23 11:02 11:51 Temperature 98.2 F 97.5 F L Pulse Rate 60 60 Respiratory 18 18 Rate Blood Pressure 142/66 165/77 O2 Sat by Pulse 95 97 Oximetry Medical Decision Making - Medical Decision Making Was pt. sent in by a medical professional or institution (, PA, PROJECTOR BOOTH OPERATOR, urgent care, hospital, or jail...) When possible be specific @ -Dr. Santiago Did you speak to anyone other than the patient for history (EMS, parent, family, police, friend...)? What history was obtained from this source @ -No Did you review nursing and triage notes (agree or disagree)? Why? @ -I reviewed and agree with nursing and triage notes Were old charts reviewed (outside hosp., previous admission, EMS record, old EKG , old radiological studies, urgent care reports/EKG's, jail records)? Report findings @ -No old charts were reviewed Differential Diagnosis (chest pain, altered mental status, abdominal pain women, abdominal pain men, vaginal bleeding, weakness, fever, dyspnea, syncope, headache, dizziness, GI bleed, back pain, seizure, CVA, palpatations, mental health, musculoskeletal)? @ -cellulitis, abscess, DVT, arterial occlusion EKG interpreted by me (3pts min.). @ -n/a X-rays interpreted by me (1pt min.). @ -None done CT interpreted by me (1pt min.). @ no U/S interpreted by me (1pt. min.). @ -None done What testing was considered but not performed or refused? (CT, X-rays, U/S, labs)? Why? @ -None What meds were considered but not given or refused? Why? @ -None Did you discuss the management of the patient with other professionals (professionals i.e. Dr., PA, PROJECTOR BOOTH OPERATOR, lab, RT, psych nurse, social service manager, tree puller, teacher, security officer supervisor, family independence case manager)? Give summary @ -No Was smoking cessation discussed for >3mins.? @ -No] Was critical care preformed (if so, how long)? @ [N] Were there social determinants of health that impacted care today? How? (Homelessness, low income, unemployed, alcoholism, drug addiction, transportation, low edu. Level, literacy, decrease access to med. care, [facility], rehab)? @ [N] Was there de-escalation of care discussed even if they declined (Discuss DNR or withdrawal of care, Hospice)? DNR status @ [N] What co-morbidities impacted this encounter? (DM, HTN, Smoking, COPD, CAD, Cancer, CVA, ARF, Chemo, Hep., AIDS, mental health diagnosis, sleep apnea, morbid obesity)? @ -History of coronary artery disease, hypertension and borderline diabetic. Was patient admitted / discharged? Hospital course, mention meds given and route , prescriptions, significant lab abnormalities, going to OR and other pertinent info. @ -discharged, Nontoxic-appearing 67-year-old male presents with right lower leg swelling and redness with an abrasion to his right mancia that he obtained while getting on a boat in [place] on Sunday. Has been using Neosporin, noticed increased redness and swelling which was worse after getting off the airplane Sunday night, 10 hour flight. States was wearing compression wraps on plane. Patient does have right calf tenderness. Denies any chest pain or shortness of breath. No fevers. Is currently taking Eliquis. Sent by his primary care Dr. Santiago for evaluation. On physical exam patient has decreased pulses to the right lower extremity with significant swelling and erythema. Abrasion noted with no purulent drainage or abscess. Discoloration of the second and third digits. Bruising noted to the arch of the right foot and popliteal fossa. Foot and lower extremity red and warm to touch. Erythema was outlined with skin marker. 2 g of Rocephin was given due to patient's weight for cellulitis. Tetanus was updated. Ultrasound shows no evidence of DVT in the right lower extremity. Labs show no evidence of leukocytosis. BNP 605. Due to cyanosis of the second and minimally third digits of the right foot. Angiogram was ordered. CT angiogram asymmetric edema throughout the right lower extremity compared to the left with increased in number of collateral vasculature within the right lower extremity. Hyperdense 3 cm region within the medial aspect of the right lower extremity and mid tibial region soft tissue favored to represent a hematoma. Minimal atherosclerotic disease involving abdominal aorta and lower extremity vasculature. Poor visualization of the right posterior tibial artery. Colonic diverticulosis without diverticulitis. Patient is currently taking eliquis. He was discharged home and directed to elevate leg due to leg edema, take antibiotics as prescribed for cellulitis. Strict return parameters were discussed for any fevers, increasing redness, pain, pallorl or paresthesias. Patient and are agreeable to this plan of care. Case discussed with Dr. Valentin Undiagnosed new problem with uncertain prognosis? @ [N] Drug Therapy requiring intensive monitoring for toxicity (Heparin, Nitro, Insulin, Cardizem)? @ [N] Were any procedures done? @ no Diagnosis/symptom? @ -cellulitis, leg edema Acute, or Chronic, or Acute on Chronic? @ -acute Uncomplicated (without systemic symptoms) or Complicated (systemic symptoms)? @ -uncomplicated Side effects of treatment? @ [N] Exacerbation, Progression, or Severe Exacerbation? @ [N] Poses a threat to life or bodily function? How? (Chest pain, [place], [place], pneumonia, PE, COPD, DKA, ARF, appy, cholecystitis, CVA, Diverticulitis, Homicidal, Suicidal, threat to staff... and all critical care pts) @ [N] - Lab Data Result diagrams: 03/08/23 11:39 03/08/23 11:39 Lab Results 03/08/23 03/08/23 03/08/23 Range/Units 11:39 11:39 11:39 WBC 6.1 (3.8-10.6) k/uL RBC 4.00 L (4.30-5.90) m/uL Hgb 13.2 (13.0-17.5) gm/dL Hct 39.5 (39.0-53.0) % MCV 98.7 (80.0-100.0) fL MCH 33.0 (25.0-35.0) pg MCHC 33.5 (31.0-37.0) g/dL RDW 14.1 (11.5-15.5) % Plt Count 278 (150-450) k/uL MPV 7.6 Neutrophils % 64 % Lymphocytes % 19 % Monocytes % 9 % Eosinophils % 6 % Basophils % 0 % Neutrophils # 3.9 (1.3-7.7) k/uL Lymphocytes # 1.2 (1.0-4.8) k/uL Monocytes # 0.6 (0-1.0) k/uL Eosinophils # 0.3 (0-0.7) k/uL Basophils # 0.0 (0-0.2) k/uL PT (9.0-12.0) sec INR (<1.2) APTT (22.0-30.0) sec Sodium 137 (137-145) mmol/L Potassium 4.2 (3.5-5.1) mmol/L Chloride 90 L (98-107) mmol/L Carbon Dioxide 34 H (22-30) mmol/L Anion Gap 13 mmol/L BUN 25 H (9-20) mg/dL Creatinine 1.24 (0.66-1.25) mg/dL Est GFR (CKD-EPI)AfAm 69 (>60 ml/min/1.73 sqM) Est GFR (CKD-EPI)NonAf 59 (>60 ml/min/1.73 sqM) Glucose 130 H (74-99) mg/dL Calcium 9.4 (8.4-10.2) mg/dL Total Bilirubin 1.2 (0.2-1.3) mg/dL AST 27 (17-59) U/L ALT 26 (4-49) U/L Alkaline Phosphatase 94 (38-126) U/L NT-Pro-B Natriuret Pep 605 pg/mL Total Protein 7.4 (6.3-8.2) g/dL Albumin 4.4 (3.5-5.0) g/dL 03/08/23 Range/Units 12:30 WBC (3.8-10.6) k/uL RBC (4.30-5.90) m/uL Hgb (13.0-17.5) gm/dL Hct (39.0-53.0) % MCV (80.0-100.0) fL MCH (25.0-35.0) pg MCHC (31.0-37.0) g/dL RDW (11.5-15.5) % Plt Count (150-450) k/uL MPV Neutrophils % % Lymphocytes % % Monocytes % % Eosinophils % % Basophils % % Neutrophils # (1.3-7.7) k/uL Lymphocytes # (1.0-4.8) k/uL Monocytes # (0-1.0) k/uL Eosinophils # (0-0.7) k/uL Basophils # (0-0.2) k/uL PT 11.4 (9.0-12.0) sec INR 1.1 (<1.2) APTT 26.8 (22.0-30.0) sec Sodium (137-145) mmol/L Potassium (3.5-5.1) mmol/L Chloride (98-107) mmol/L Carbon Dioxide (22-30) mmol/L Anion Gap mmol/L BUN (9-20) mg/dL Creatinine (0.66-1.25) mg/dL Est GFR (CKD-EPI)AfAm (>60 ml/min/1.73 sqM) Est GFR (CKD-EPI)NonAf (>60 ml/min/1.73 sqM) Glucose (74-99) mg/dL Calcium (8.4-10.2) mg/dL Total Bilirubin (0.2-1.3) mg/dL AST (17-59) U/L ALT (4-49) U/L Alkaline Phosphatase (38-126) U/L NT-Pro-B Natriuret Pep pg/mL Total Protein (6.3-8.2) g/dL Albumin (3.5-5.0) g/dL Disposition Clinical Impression: Cellulitis of right lower extremity, Leg edema, right Disposition: HOME SELF-CARE Condition: Good Instructions (If sedation given, give patient instructions): Cellulitis (ED), Leg Edema (ED) Prescriptions: Bacitracin Zinc/Polymyxin B [Bacitracin-Polymyxin Ointment] 1 applic TOPICAL BID 7 Days #15 gm Cephalexin [Keflex] 500 mg PO Q6HR #40 cap Is patient prescribed a controlled substance at d/c from ED?: No Referrals: Anoop Sethi III, MD [Primary Care Provider] - 1-2 days Time of Disposition: 15:47
[2023-03-08 11:55] VITALS: TEMP 97.5
[2023-03-08 11:56] VITALS: BP 165/77
[2023-03-08 12:00] LABS: Basophils % (A) 0 %; Eosinophils # (A) 0.3 k/uL (0-0.7); Eosinophils % (A) 6 %; HCT 39.5 % (39.0-53.0); HGB 13.2 gm/dL (13.0-17.5); Lymphocytes # (A) 1.2 k/uL (1.0-4.8); Lymphocytes % (A) 19 %; MCHC 33.5 g/dL (31.0-37.0); MCV 98.7 fL (80.0-100.0); Mean Platelet Volume 7.6; Monocytes # (A) 0.6 k/uL (0-1.0); Monocytes % (A) 9 %; Neutrophils # (A) 3.9 k/uL (1.3-7.7); Neutrophils % (A) 64 %; Platelet Count 278 k/uL (150-450); RDW 14.1 % (11.5-15.5); WBC 6.1 k/uL (3.8-10.6)
[2023-03-08 12:22] LABS: ALT 26 U/L (4-49); AST 27 U/L (17-59); African American GFR (CKD) 69 (>60 ml/min/1.73 sqM); Albumin 4.4 g/dL (3.5-5.0); Alkaline Phosphatase 94 U/L (38-126); Anion Gap 13 mmol/L; Blood Urea Nitrogen 25 mg/dL (9-20); Calcium 9.4 mg/dL (8.4-10.2); Carbon Dioxide 34 mmol/L (22-30); Chloride 90 mmol/L (98-107); Glucose 130 mg/dL (74-99); Non-African American GFR(CKD) 59 (>60 ml/min/1.73 sqM); Potassium 4.2 mmol/L (3.5-5.1); Sodium 137 mmol/L (137-145); Total Bilirubin 1.2 mg/dL (0.2-1.3); Total Protein 7.4 g/dL (6.3-8.2)
--- NOTE | 2023-03-08 12:41 | US ---
EXAMINATION TYPE: US venous doppler duplex LE RT DATE OF EXAM: 03/08/2023 12:23 PM COMPARISON: US 2016 CLINICAL INDICATION: Male, 67 years old with history of pain; Right lower leg pain, swelling and redn ess SIDE PERFORMED: Right TECHNIQUE: The lower extremity deep venous system is examined utilizing real time linear array sonog belle with graded compression, doppler sonography and color-flow sonography. VESSELS IMAGED: Common Femoral Vein Deep Femoral Vein Greater Saphenous Vein * Femoral Vein Popliteal Vein Small Saphenous Vein * Proximal Calf Veins (* superficial vessels) Grayscale, color doppler, spectral doppler imaging performed of the deep veins of the lower extremiti es. There is normal flow, compressibility, vascular waveforms. Right Leg: Appears negative for DVT IMPRESSION: No ultrasound evidence for deep venous thrombosis of the right lower extremity.
[2023-03-08] MEDS ORDERED: RX INFO: IV CONTRAST WAS GIVEN 1 EACH MISC MISCELLANE PRN (12:52)
[2023-03-08 13:18] LABS: INR 1.1 (<1.2); Partial Thromboplastin Time 26.8 sec (22.0-30.0); Prothrombin Time 11.4 sec (9.0-12.0)
[2023-03-08] MEDS ORDERED: DIPH,PERTUS(ACELL)TETVAC-LF 0.5 ML VIAL IM ONE (13:35)
[2023-03-08] MEDS ORDERED: SODIUM CHLORIDE 0.9% 500 ML 500 ML IV ONE (13:36)
--- NOTE | 2023-03-08 15:27 | CT ---
EXAMINATION TYPE: CT angio lower extremity RT CT DLP: 1783.4 mGycm, Automated exposure control for dose reduction was used. DATE OF EXAM: 03/08/2023 3:06 PM COMPARISON: Right lower extremity venous ultrasound 03/08/2023 CLINICAL INDICATION:Male, 67 years old with history of swelling pain; RT lower extremity swelling and pain. PT diabetic. TECHNIQUE: Multiple thin slice sub-millimeter images were obtained through the abdomen, pelvis, and l ower extremities after administration of contrast. Patient was given Isovue 370, 100 cc intravenousl y. 3-D reconstructed images and maximum intensity projection images were obtained of the abdomen, pe lvis, and lower extremities. FINDINGS: Entire abdomen was not included in the [id number] which limits evaluation. Motion degrad ed examination. CTA Abdomen and pelvis: The abdominal aorta does not demonstrate aneurysmal dilatation. Minimal athe rosclerotic plaquing is identified within the abdominal aorta. The origins of the superior mesenteri c artery, renal arteries, inferior mesenteric artery, and celiac axis are patent. The iliac vessels are normal in morphology. CTA Lower extremities: Right: The common femoral and superficial femoral arteries are patent. The popliteal artery is patent . Anterior and peroneal arteries are patent across ankle. The posterior tibial artery is diminutive a nd poorly visualized. Multiple collateral Left: The common femoral and superficial femoral arteries are patent. The popliteal artery is patent. Anterior and posterior tibial arteries as well as the peroneal artery are patent. Anterior and poste rior tibial arteries cross the ankle. VISCERA: The liver, spleen, adrenal glands, kidneys, pancreas, and gallbladder are not optimally enha nced due the arterial phase utilized. LIVER: Visualized portions unremarkable. GALLBLADDER AND BILE DUCTS: Unremarkable. PANCREAS: Unremarkable. SPLEEN: Visualized portions unremarkable. ADRENAL GLANDS: Unremarkable. KIDNEYS AND URETERS: No evidence of hydronephrosis or renal calculus. The ureters are unremarkable. PELVIS BLADDER: Unremarkable REPRODUCTIVE: Coarse calcifications of the prostate gland are identified. ABDOMEN & PELVIS STOMACH AND BOWEL: Nonspecific submucosal fat deposition within the stomach. Distal colonic diverticu losis without evidence for acute diverticulitis. The appendix is within normal limits. No evidence of bowel obstruction. PERITONEUM: No evidence of pneumoperitoneum or free fluid. MUSCULOSKELETAL: No acute osseous abnormalities. Small right suprapatellar joint effusion. Asymmetric edema identified throughout the right lower extremity compared to the left. Increased collateral vas culature within the right lower extremity when compared to the left. There is a hyperdense 3.0 x 1.2 cm region within the medial aspect of the right lower extremity mid tibial region soft tissues (serie s 401, image 494). LYMPH NODES: No gross evidence for lymphadenopathy. SOFT TISSUE/ABDOMINAL WALL: Small fat filled umbilical hernia. IMPRESSION 1. Asymmetric edema throughout the right lower extremity compared to the left with increase in number of collateral vasculature within the right lower extremity. Hyperdense 3.0 cm region within the medi al aspect of the right lower extremity mid tibial region soft tissues favored to represent a hematoma . Clinical correlation is recommended. 2. Minimal atherosclerotic disease involving abdominal aorta and lower extremity vasculature. Poor v isualization of the right posterior tibial artery. 3. Colonic diverticulosis without evidence for acute diverticulitis.
== END 2023-03-08 16:14 | disposition home or self-care (01) ==
LOC: EC 10:40
DX: S80.811A Abrasion, right lower leg, initial encounter (principal); L03.115 Cellulitis of right lower limb; R60.0 Localized edema; E11.9 Type 2 diabetes mellitus without complications; I10 Essential (primary) hypertension; I25.10 Atherosclerotic heart disease of native coronary artery without angina pectoris; Z23 Encounter for immunization; Z79.01 Long term (current) use of anticoagulants; Z79.82 Long term (current) use of aspirin; Z79.84 Long term (current) use of oral hypoglycemic drugs; Z79.899 Other long term (current) drug therapy; Z87.891 Personal history of nicotine dependence; Z95.5 Presence of coronary angioplasty implant and graft; W22.8XXA Striking against or struck by other objects, initial encounter; Y92.814 Boat as the place of occurrence of the external cause
CPT/HCPCS: 36415; 83880; 80053; 85025; 85610; 85730; 87040; 93971; 73706; 90715; 99284; 96365; 90471; J0696; Q9967

== ENCOUNTER → 2023-03-21 | Outpatient (CLI) | payer MEDICARE ==
[2023-03-21 16:29] LABS: BUN/Creat Ratio 19.17 Ratio (12.00-20.00); Calcium 9.2 mg/dL (8.7-10.3); Carbon Dioxide 33.3 mmol/L (21.6-31.8); Chloride 94 mmol/L (96-109); Glucose 96 mg/dL (70-110); Potassium 4.4 mmol/L (3.5-5.5); Sodium 143 mmol/L (135-145)
== END | disposition home or self-care (01) ==
LOC: LABWHC1 07:10
PROVIDERS: ATTEND Internal Medicine Interventional Cardiology
DX: I10 Essential (primary) hypertension (principal); I25.10 Atherosclerotic heart disease of native coronary artery without angina pectoris
CPT/HCPCS: 36415; 80048

== ENCOUNTER → 2023-05-10 | Outpatient (CLI) | payer MEDICARE ==
[2023-05-10 11:17] LABS: Basophils # (A) 0.08 X 10*3/uL (0.00-0.10); Basophils % (A) 1.4 %; Eosinophils # (A) 0.34 X 10*3/uL (0.04-0.35); Eosinophils % (A) 5.9 %; HCT 38.9 % (39.6-50.0); HGB 12.8 d/dL (13.0-17.0); Lymphocytes # (A) 1.09 X 10*3/uL (0.90-5.00); MCH 33.1 pg (27.0-32.0); MCHC 32.9 d/dL (32.0-37.0); MCV 100.5 FL (80.0-97.0); Mean Platelet Volume 9.5 FL (9.5-12.2); Monocytes # (A) 0.64 X 10*3/uL (0.20-1.00); Monocytes % (A) 11.1 %; NRBC Per 100 WBC 0 X 10*3/uL (0.00-0.01); Neutrophils # (A) 3.57 X 10*3/uL (1.80-7.70); Neutrophils % (A) 62.1 %; Platelet Count 256 X 10*3/uL (140-440); RBC 3.87 X 10*6/uL (4.40-5.60); RDW 13.7 % (11.5-14.5); WBC 5.75 X 10*3/uL (4.50-10.00)
[2023-05-10 11:24] LABS: ALT 22 U/L (10-49); AST 22 U/L (14-35); Albumin 4.5 d/dL (3.8-4.9); Albumin/Globulin Ratio 2.05 Ratio (1.60-3.17); Alkaline Phosphatase 82 U/L (41-126); Blood Urea Nitrogen 30.4 mg/dL (9.0-27.0); Calcium 9.4 mg/dL (8.7-10.3); Carbon Dioxide 30.1 mmol/L (21.6-31.8); Chloride 95 mmol/L (96-109); Chol/HDL Ratio 2.46 Ratio; Creatine Kinase 41 U/L (35-257); Globulin 2.2 d/dL (1.6-3.3); Glucose 131 mg/dL (70-110); LDL Cholesterol,Calculated 54.5 mg/dL (0.0-131.0); Potassium 4.4 mmol/L (3.5-5.5); Sodium 141 mmol/L (135-145); Total Bilirubin 0.6 mg/dL (0.3-1.2); Total Protein 6.7 d/dL (6.2-8.2); Uric Acid 10.7 mg/dL (3.7-8.7)
[2023-05-10 11:29] LABS: Microalbumin Creatinine Ratio <11 mg/g Cr (0-30)
== END | disposition home or self-care (01) ==
LOC: LABWHC1 07:02
PROVIDERS: ATTEND Internal Medicine Geriatric Medicine
DX: E11.22 Type 2 diabetes mellitus with diabetic chronic kidney disease (principal); N18.1 Chronic kidney disease, stage 1; I48.0 Paroxysmal atrial fibrillation; I25.83 Coronary atherosclerosis due to lipid rich plaque
CPT/HCPCS: 36415; 80053; 80061; 82043; 82550; 82570; 84443; 84550; 85025

== ENCOUNTER → 2023-06-27 | Outpatient (CLI) | payer MEDICARE ==
[2023-06-27 13:49] LABS: Basophils # (A) 0.06 X 10*3/uL (0.00-0.10); Eosinophils # (A) 0.36 X 10*3/uL (0.04-0.35); Eosinophils % (A) 6.3 %; HCT 38.8 % (39.6-50.0); HGB 12.7 d/dL (13.0-17.0); Lymphocytes # (A) 1.12 X 10*3/uL (0.90-5.00); Lymphocytes % (A) 19.6 %; MCH 33.2 pg (27.0-32.0); MCHC 32.7 d/dL (32.0-37.0); MCV 101.3 FL (80.0-97.0); Mean Platelet Volume 10.1 FL (9.5-12.2); Monocytes # (A) 0.55 X 10*3/uL (0.20-1.00); Monocytes % (A) 9.6 %; NRBC Per 100 WBC 0 X 10*3/uL (0.00-0.01); Neutrophils # (A) 3.62 X 10*3/uL (1.80-7.70); Neutrophils % (A) 63.3 %; Platelet Count 249 X 10*3/uL (140-440); RBC 3.83 X 10*6/uL (4.40-5.60); WBC 5.72 X 10*3/uL (4.50-10.00)
[2023-06-27 13:50] LABS: ALT 22 U/L (10-49); AST 25 U/L (14-35); Albumin 4.4 d/dL (3.8-4.9); Alkaline Phosphatase 71 U/L (41-126); BUN/Creat Ratio 18.23 Ratio (12.00-20.00); Blood Urea Nitrogen 23.7 mg/dL (9.0-27.0); Calcium 9.9 mg/dL (8.7-10.3); Carbon Dioxide 30.8 mmol/L (21.6-31.8); Chloride 97 mmol/L (96-109); Globulin 2.2 d/dL (1.6-3.3); Glucose 105 mg/dL (70-110); Potassium 4.8 mmol/L (3.5-5.5); Sodium 142 mmol/L (135-145); T4, Free (Free Thyroxine) 1.57 ng/dL (0.80-1.80); Total Bilirubin 0.5 mg/dL (0.3-1.2); Total Protein 6.6 d/dL (6.2-8.2); Uric Acid 7.5 mg/dL (3.7-8.7)
== END | disposition home or self-care (01) ==
LOC: LABWHC1 07:13
PROVIDERS: ATTEND Internal Medicine Geriatric Medicine
DX: E11.22 Type 2 diabetes mellitus with diabetic chronic kidney disease (principal); N18.1 Chronic kidney disease, stage 1; E03.9 Hypothyroidism, unspecified; M10.9 Gout, unspecified
CPT/HCPCS: 36415; 80053; 83036; 84439; 84443; 84550; 85025

== ENCOUNTER 2024-04-12 20:40 | Emergency (ER) | payer MEDICARE ==
[2024-04-12 20:48] VITALS: RESP 18; TEMP 97.3
--- NOTE | 2024-04-12 21:11 | ED ---
Fall HPI - General Chief Complaint: Fall Stated Complaint: Fall on thinners Time Seen by Provider: 04/12/24 20:50 Source: patient, RN notes reviewed Mode of arrival: wheelchair Limitations: no limitations - History of Present Illness Initial Comments: This is a 68-year-old male who presents to the emergency department for a fall. Patient was drinking a couple of alcoholic beverages and when he went to get up he lost his balance and fell face forward. He ended up falling twice within a couple of seconds, causing a large laceration over his left eyebrow. Denies any loss of consciousness. He is on Eliquis. He continues to have a headache. Denies sustaining any other injuries. Unsure when his last tetanus vaccine was. MD Complaint: fall - Related Data Home Medications Medication Instructions Recorded Confirmed Aspirin [Adult Low Dose Aspirin EC] 81 mg PO DAILY 07/25/16 03/08/23 Apixaban [Eliquis] 5 mg PO BID 05/04/21 03/08/23 Ascorbic Acid [Vitamin C] 1,000 mg PO DAILY 05/04/21 03/08/23 EPINEPHrine (Auto Inject) [Epipen] 0.3 mg IM ONCE PRN 05/04/21 03/08/23 Empagliflozin [Jardiance] 25 mg PO DAILY 05/04/21 03/08/23 Ferrous Sulfate [Feosol] 325 mg PO DAILY 05/04/21 03/08/23 Meclizine HCl 25 mg PO BID PRN 05/04/21 03/08/23 Potassium Chloride [Klor-Con 20] 20 meq PO DAILY 05/04/21 03/08/23 metFORMIN HCL [Glucophage] 1,000 mg PO BID 05/04/21 03/08/23 Amiodarone [Cordarone] 200 mg PO DAILY 03/08/23 03/08/23 Furosemide [Lasix] 40 mg PO DAILY 03/08/23 03/08/23 Hydrocortisone Cream 1 applic TOPICAL DAILY 03/08/23 03/08/23 [Hydrocortisone 1% Cream] Previous Rx's Medication Instructions Recorded Atorvastatin [Lipitor] 80 mg PO HS #90 tab 06/02/15 Nitroglycerin Sl Tabs [Nitrostat] 0.4 mg SUBLINGUAL Q5M PRN #25 tab 06/02/15 Metoprolol Tartrate [Lopressor] 75 mg PO BID #180 tab 08/13/21 Bacitracin Zinc/Polymyxin B 1 applic TOPICAL BID 7 Days #15 gm 03/08/23 [Bacitracin-Polymyxin Ointment] Cephalexin [Keflex] 500 mg PO Q6HR #40 cap 03/08/23 Allergies Allergy/AdvReac Type Severity Reaction Status Date / Time No Known Allergies Allergy Verified 03/08/23 13:44 Review of Systems ROS Statement: Those systems with pertinent positive or pertinent negative responses have been documented in the HPI. ROS Other: All systems not noted in ROS Statement are negative. Past Medical History Past Medical History: Coronary Artery Disease (CAD), Chest Pain / Angina, Diabetes Mellitus, Hypertension Additional Past Medical History / Comment(s): Other HX: NIDDM, pericarditis 25- 30 yrs ago, mild diverticulosis per 07/2014 colonoscopy, shingles. History of Any Multi-Drug Resistant Organisms: None Reported Past Surgical History: Ablation, Heart Catheterization With Stent, Orthopedic Surgery, Tonsillectomy Additional Past Surgical History / Comment(s): 06/02/15 PCI with stents in distal RCA and mid LAD. Other sx: 1969 rt knee surgery cartlidge was cleaned, 2013 rt bicep surgery- due to bicep rupture, 07/1014 colonoscopy, ablation apr 2021 Past Anesthesia/Blood Transfusion Reactions: No Reported Reaction Date of Last Stent Placement:: 2014 Past Psychological History: No Psychological Hx Reported Smoking Status: Former smoker Past Alcohol Use History: Occasional Past Drug Use History: None Reported - Past Family History Mother Family Medical History: Dementia Additional Family Medical History / Comment(s): Mother was 83 yrs old when she . Grandfather on mother's side at age 54yrs from [place]. Father Family Medical History: CVA/TIA Additional Family Medical History / Comment(s): Father of brain stem CVA at age 84 yrs. General Exam Limitations: no limitations General appearance: alert, in no apparent distress Head exam: Present: other (Large stellate laceration with active bleeding over the left eyebrow) Eye exam: Present: normal appearance, PERRL, EOMI. Absent: scleral icterus, conjunctival injection, periorbital swelling Respiratory exam: Present: normal lung sounds bilaterally. Absent: respiratory distress, wheezes, rales, rhonchi, stridor Cardiovascular Exam: Present: regular rate, normal rhythm, normal heart sounds. Absent: systolic murmur, diastolic murmur, rubs, gallop, clicks Neurological exam: Present: alert, oriented X3, CN II-XII intact Psychiatric exam: Present: normal affect, normal mood Course Vital Signs 04/12/24 04/12/24 20:43 22:58 Temperature 97.3 F L Pulse Rate 55 L 60 Respiratory 18 18 Rate Blood Pressure 163/74 164/73 O2 Sat by Pulse 99 98 Oximetry Procedures - Laceration Laceration #1 Consent Obtained: verbal consent Indication: laceration Site: face Size (cm): 8 Description: stellate Depth: simple, single layer Anesthetic Used: lidocaine 1%, with epi Anesthesia Technique: local infiltration Amount (mls): 5 Pre-repair: wound explored, irrigated extensively Type of Sutures: nylon Size of Sutures: 5-0 Number of Sutures: 20 Technique: simple, interrupted Medical Decision Making - Medical Decision Making This is a 68-year-old male who presents to the emergency department for a fall. Was pt. sent in by a medical professional or institution? @ -No Did you speak to anyone other than the patient for history? @ -No Did you review nursing and triage notes? @ -Yes, and I agree, it is accurate with regards to the patient's symptoms. Were old charts reviewed? @ -No Differential Diagnosis? @ -Differential Diagnosis Head Injury: Contusion, hematoma, intracranial hemorrhage, skull fracture, whiplash, concussion, this is not meant to be an all-inclusive list. EKG interpreted by me (3pts min.)? @ -EKG interpreted by me demonstrating the following: Atrial fibrillation. Ventricular rate 50 bpm, QRS duration 181 ms, QTc 520 ms. X-rays interpreted by me (1pt min.)? @ -Not obtained CT interpreted by me (1pt min.)? @ -Computed tomography scan of the brain and c-spine obtained. My interpretation identifies no evidence of an acute intracranial hemorrhage, skull fracture, or cervical spine fracture. CT scan of the facial bones obtained. My interpretation identifies no evidence of any facial fractures. U/S interpreted by me (1pt. min.)? @ -Not obtained What testing was considered but not performed? (CT, X-rays, U/S, labs)? Why? @ -None What meds were considered but not given? Why? @ -None Did you discuss the management of the patient with other professionals? @ -No Did you reconcile home meds? @ -No Was smoking cessation discussed for >3mins.? @ -No Was critical care preformed (if so, how long)? @ -No Were there social determinants of health that impacted care today? How? (Homelessness, low income, unemployed, alcoholism, drug addiction, transportation, low edu. Level, literacy, decrease access to med. care, [facility], rehab)? @ -No Was there de-escalation of care discussed even if they declined? (Discuss DNR or withdrawal of care, Hospice)? @ -No What co-morbidities impacted this encounter? (DM, HTN, Smoking, COPD, CAD, Cancer, CVA, Hep., AIDS, mental health diagnosis, sleep apnea, morbid obesity)? @ -CAD Was patient admitted / discharged? @ -Discharged. CT scan of the brain/C-spine and facial bones obtained revealing no acute intracranial abnormality. Patient declined any pain medication. Sutures were placed to repair the laceration on the patient's head. Tetanus vaccine was updated. He is instructed to return in 10 to 14 days for suture removal. Advised Tylenol as needed for pain relief. Patient discharged home with family in stable condition. Undiagnosed new problem with uncertain prognosis? @ -None Drug Therapy requiring intensive monitoring for toxicity (Heparin, Nitro, Insulin, Cardizem)? @ -None Were any procedures done? @ -Laceration repair with sutures Diagnosis/symptom? @ -Fall, laceration, head injury Acute, or Chronic, or Acute on Chronic? @ -Acute Uncomplicated (without systemic symptoms) or Complicated (systemic symptoms)? @ -Uncomplicated Side effects of treatment? @ -None Exacerbation, Progression, or Severe Exacerbation] @ -Not applicable Poses a threat to life or bodily function? @ -No Return precautions reviewed in depth, the patient is instructed to return to the emergency department with any new, worsening, or concerning symptoms. Patient verbalized understanding. This case was discussed in detail with the attending ED physician, Dr. Betancourt. Presentation, findings, and treatment plan discussed in detail as well. - Radiology Data Radiology results: report reviewed, image reviewed Disposition Clinical Impression: Fall, Laceration, Head injury Disposition: HOME SELF-CARE Condition: Fair Instructions (If sedation given, give patient instructions): Care For Your Stitches (ED), Laceration (ED), Fall Prevention for Older Adults (ED) Additional Instructions: Return to the emergency department with any new, worsening, or concerning symptoms and in 10-14 days for removal of the stitches. Take Tylenol as needed for pain relief. If he continues to develop bleeding, dab the liquid medicine provided on a cottonball and tape it over the injury for 15 to 20 minutes. You can also apply pressure with the gauze provided. Is patient prescribed a controlled substance at d/c from ED?: No Referrals: Jose Soriano MD [Primary Care Provider] - 1-2 days Time of Disposition: 22:55
[2024-04-12] MEDS: DIPH,PERTUS(ACELL)TETVAC-LF 0.5 ML VIAL IM ONE (21:28)
[2024-04-12] MEDS: LIDOCAINE 1%-EPI 1:100,000 20 ML VIAL SQ STA (21:29)
[2024-04-12] MEDS: LIDOCAINE/EPINEPHR/TETRACAINE 5 ML BOTTLE TOPICAL ONE (21:30)
--- NOTE | 2024-04-12 22:03 | CT ---
EXAMINATION TYPE: CT brain cspine wo con CT DLP: 1256.1 combined mGycm, Automated exposure control for dose reduction was used. DATE OF EXAM: 04/12/2024 9:55 PM COMPARISON: None. CLINICAL INDICATION:Male, 68 years old with history of Fall, head injury; pt bib family pt had a few alcohol beverages and fell on face, pt fell twice on blood thinners has large gash to left . no loc n o n/v. TECHNIQUE: Brain: Multiple axial CT images of the brain were obtained without IV contrast. Cspine: Axial CT images from the skull base to the inferior aspect of T2 we obtained without intraven ous contrast. Coronal and sagittal reformatted images were also reviewed. Facial: Axial imaging of the facial structures with sagittal and coronal reformats. FINDINGS: Brain: Extra-axial spaces: No abnormal extra-axial fluid collections. Ventricular system: Within normal limits. Bill cisterna magna versus arachnoid cyst in left extracran ial fossa. Cerebral parenchyma: No acute intraparenchymal hemorrhage or mass effect. The lopez-white junction is well differentiated. Cerebellum: Unremarkable. Mass effect: No evidence of midline shift. Intracranial vasculature: unremarkable Soft tissues: Normal. Calvarium/osseous structures: No depressed skull fracture. Paranasal sinuses and mastoid air cells: Clear. Visualized orbits: Orbital contents are intact. Cervical spine: Fracture: None. Osseous structures: Multilevel degenerative disc disease changes with endplate spurring and disc oste ophyte complex's. Vertebral alignment: Within normal limits. Spinal canal/Neural Foramina: No evidence of significant spinal canal narrowing. No evidence for sign ificant neural foraminal stenosis. Neck soft tissues: Prevertebral soft tissues are within normal limits. Other: The airway is patent. The lung apices are clear. Atherosclerosis of the carotid bifurcations. Facial: Left facial laceration without evidence of fracture. The globes are intact. The paranasal sin uses are relatively clear. The nose appears intact. Nasal septum mildly deviated leftward with spurri ng. IMPRESSION: 1. No acute intracranial process. 2. Left scalp laceration and and left cheek edema without evidence for fracture. 3. No evidence of cervical spine fracture. 4. Mild to moderate multilevel degenerative disc disease.
[2024-04-12 22:58] VITALS: BP 164/73; PULSE 60
== END 2024-04-12 23:17 | disposition home or self-care (01) ==
LOC: EC 20:40
DX: S01.112A Laceration without foreign body of left eyelid and periocular area, initial encounter (principal); S01.01XA Laceration without foreign body of scalp, initial encounter; S09.90XA Unspecified injury of head, initial encounter; Z87.891 Personal history of nicotine dependence; Z23 Encounter for immunization; W18.30XA Fall on same level, unspecified, initial encounter
CPT/HCPCS: 12015; 70450; 70486; 72125; 90471; 90715; 99284

== ENCOUNTER → 2024-06-18 | Outpatient (CLI) | payer MEDICARE ==
[2024-06-19 02:14] LABS: Basophils # (A) 0.07 X 10*3/uL (0.00-0.10); Eosinophils # (A) 0.28 X 10*3/uL (0.04-0.35); HCT 37.7 % (39.6-50.0); HGB 12.5 g/dL (13.0-17.0); Lymphocytes # (A) 1.71 X 10*3/uL (0.90-5.00); Lymphocytes % (A) 24.4 %; MCH 33.4 pg (27.0-32.0); MCHC 33.2 g/dL (32.0-37.0); MCV 100.8 FL (80.0-97.0); Mean Platelet Volume 10.4 FL (9.5-12.2); Monocytes # (A) 0.75 X 10*3/uL (0.20-1.00); Monocytes % (A) 10.7 %; NRBC Per 100 WBC 0 X 10*3/uL (0.00-0.01); Neutrophils # (A) 4.17 X 10*3/uL (1.80-7.70); Neutrophils % (A) 59.6 %; Platelet Count 240 X 10*3/uL (140-440); RBC 3.74 X 10*6/uL (4.40-5.60); RDW 13.1 % (11.5-14.5)
[2024-06-19 03:02] LABS: Carbon Dioxide 30.6 mmol/L (21.6-31.8); Chloride 96 mmol/L (96-109); Potassium 4.7 mmol/L (3.5-5.5); Sodium 142 mmol/L (135-145)
== END | disposition home or self-care (01) ==
LOC: LABPAT 14:33
PROVIDERS: ATTEND Internal Medicine Interventional Cardiology
DX: Z18.12 Retained nonmagnetic metal fragments (principal); I25.10 Atherosclerotic heart disease of native coronary artery without angina pectoris
CPT/HCPCS: 80051; 82565; 84520; 85025

== ENCOUNTER 2024-06-25 06:03 | Day surgery (SDC) | payer MEDICARE ==
[2024-06-19 15:58] VITALS: BMI 36.1
[~2024-06-25 06:03] MED LIST changes: +ALPRAZolam 0.25 MG TAB PO PRN; +ALPRAZolam 0.5 MG TAB PO PRN; -LIDOCAINE 1% (10MG/ML) FOR IV START INTRADERMA PRN; +NITROGLYCERIN SL TABS 0.4 MG TAB SUBLINGUAL PRN
[2024-06-25] MEDS: SODIUM CHLORIDE 0.9% 1,000 ML in EMPTY BAG 1 BAG IV SCH (06:22)
[2024-06-25] MEDS: IV FLUID CONTINUATION 1,000 ML IV ONE (06:23)
[2024-06-25 06:28] LABS: Glucose,Whole Blood 105 mg/dL (70-110)
[2024-06-25] MEDS ORDERED: HEPARIN SODIUM,PORCINE (1 ML) 2,500 UNIT in SODIUM CHLORIDE 0.9% 250 ML IRRIGATION PRN (07:00)
[2024-06-25] MEDS ORDERED: HEPARIN SODIUM,PORCINE 10,000 UNIT in SODIUM CHLORIDE 0.9% 1,000 ML IRRIGATION PRN (07:00)
[2024-06-25] MEDS: MIDAZOLAM 2 MG/2 ML VIAL IVP ONE (07:32)
[2024-06-25] MEDS: LIDOCAINE 1% INJ 10MG/ML (20 ML MDV) SQ ONE (07:34)
[2024-06-25] MEDS: fentaNYL (PF) 50 MCG/ML 2 ML AMP IVP ONE (07:50)
[2024-06-25] MEDS: HEPARIN SODIUM 1,000 UN/ML (10ML VL) IVP ONE (08:11)
[2024-06-25] MEDS: CLOPIDOGREL 75 MG TAB PO ONE (08:12)
[2024-06-25] MEDS: IOPAMIDOL-370 100ML BTL INJ ONE ×2 (08:25→09:18)
[2024-06-25] MEDS: HYDROmorphone 0.5 MG/0.5 ML SYRINGE IVP ONE (08:50)
[2024-06-25] MEDS: HEPARIN SODIUM 1,000 UN/ML (10ML VL) IV ONE (09:00)
[2024-06-25] MEDS: HYDROmorphone 0.5 MG/0.5 ML SYRINGE IVP PRN (10:10)
[2024-06-25] MEDS: SODIUM CHLORIDE 0.9% 1,000 ML IV ONE (11:30)
--- NOTE | 2024-06-25 13:01 | CC ---
CARDIAC CATHETERIZATION REPORT PROCEDURE: 1. Left heart catheterization and coronary angiography. 2. PTCA and stenting of calcified right coronary artery with 2 drug-eluting stents. 3. Intravascular ultrasound of the right coronary artery postprocedure. ANESTHESIA: Moderate conscious sedation time was 108 minutes. Patient was administered Versed, Dilaudid, and fentanyl. Oxygen saturation, hemodynamics, and EKG were monitored closely. CLINICAL INFORMATION: Mr. Gupta is a 69-year-old gentleman with history of obesity, hypertension, hyperlipidemia, diabetes with mild kidney disease and creatinine in the range of 1.6. He also has history of bilateral lower extremity venous insufficiency. He has had some laser procedures done for that. He has known CAD and underwent stenting of distal RCA with a 3.25 caliber drug-eluting stent and also stenting of mid LAD with a 3.0 caliber drug-eluting stent that was performed in 2015. He has had some exertional shortness of breath and a recent stress test revealed reversible defect in the inferior wall. Therefore, he was advised coronary angiography and brought in for the procedure with possible PCI. He also has some of obstructive sleep apnea as well. He has a history of atrial flutter for which he underwent ablation and has paroxysmal atrial fibrillation and generally has a right bundle with ectopic atrial rhythm. PROCEDURE NOTE: Under strict aseptic precautions and local anesthesia, I attempted access from the right radial with ultrasound, but the pulse and size of the artery appeared to be small. Therefore, I abandoned and went from the right femoral approach. Using a micropuncture needle technique, under strict aseptic precautions and local anesthesia, a 6-[place] introducer was placed. Using standard Hannah catheters, I performed coronary angiography of the left system. I used a 4.5 curved catheter for the left coronary and a JR4 for the right coronary. With the right catheter, I checked LV pressures, but patient had a pause and therefore the catheter came out. The pressures were about 10 mmHg. This was end-diastolic pressure without gradient. Following coronary angiography, I noticed that he had a significant lesion in the proximal/mid RCA and also a restenotic lesion in the distal aspect of the stented segment in the distal RCA and also beyond the stented segment. He was advised intervention that was performed in the same setting from the right femoral approach. CARDIAC CATHETERIZATION FINDINGS: The left foot end-diastolic pressure was about 10-11 mmHg with no gradient, but when I went in with a catheter, he had a pause because of underlying right bundle. This was a very transient pause. CORONARY ANGIOGRAPHY FINDINGS: The right coronary artery is a very dominant vessel, heavily calcified and tortuous in the midportion at the junction of the proximal and middle one-third, there is an eccentric 90% stenosis just before an acute marginal branch and then the vessel improves in caliber and distally just before bifurcation, there is an another 80% stenosis and the distal portion of the previous stented area has a 50% narrowing. RCA then bifurcates into PDA and PLV, both of which are large vessels without significant disease. Left main coronary artery: Short patent vessel. No significant disease. Bifurcates into LAD and circumflex. Left anterior descending coronary artery: Good caliber vessel extends along the anterior wall, gives off septal and diagonal branches. In the midportion, the stented segment is widely patent with excellent flow. The vessel runs all the way to the apex and supplies a sizable amount of myocardium. There are minor irregularities, but no significant disease in the LAD. Left posterior circumflex coronary artery: Nondominant vessel, fair caliber, gives off a single obtuse marginal, has minor irregularities. FINAL IMPRESSION: This patient has a right-dominant system. Normal filling pressures. No gradient. RCA is heavily calcified with a mid lesion of 90% and a distal lesion of 80%. Distal lesion also involves the previous stented segment to some extent. The LAD is widely patent at the site of previous stenting without significant disease and nondominant circumflex also has minor irregularities. RECOMMENDATIONS: I recommended PCI of RCA that was performed in the same setting. PCI PROCEDURE DETAILS: I used initially a standard right Hannah guide catheter with a run-through wire. Wire was kept distally in the PLV branch. I tried to advance a 3.0 caliber NC Trek balloon and I was able to advance the balloon to the mid lesion and dilated this up at 11-12 atmospheres. I then tried to advance the same balloon to the distal area, but I had difficulty. I therefore switched over to 2 wires with a 2 wire technique. I was able to dilate the distal lesion as well. Distal lesion predilated with a 2.75 caliber 15 mm long NC Trek balloon. I tried to advance a 15 mm long 3.5 caliber Xience stent, but I had a lot of difficulty. I therefore took one of the wires out. I kept the Whisper wire and used a GuideLiner. With a GuideLiner, standard right Hannah catheter, and a Whisper wire combination, I was able to deploy the stent in the distal RCA and this was a 3.5 caliber 15 mm long stent that was deployed at 14 atmospheres. I then deployed another 3.5 caliber 15 mm long stent in the midportion at 13-14 atmospheres. I then tried to do an intravascular ultrasound, but I had difficulty advancing. I requested Dr. Bautista to help me. Dr. Bautista tried to advance the stent, had some difficulty. We switched over to an Amplatz 0.75 curve guide catheter. This was a left Amplatz. With this combination and the GuideLiner and a run-through wire, he was able to advance the intravascular ultrasound catheter all the way distally. We noted that there was significant calcification and somewhat decreased expansion of the stent both in the mid RCA as well as distal RCA. The distal RCA was dilated with a 3.5 NC Trek balloon with excellent result and the mid RCA was dilated with a 4.0 caliber 8 mm long NC Trek balloon. Excellent angiographic result was achieved. Intravascular ultrasound revealed full expansion and good apposition. However, the entire vessel had multiple areas of calcification and plaque, but the diameter was more than 3 mm throughout. Excellent angiographic result was achieved without complication. The patient's ACT was checked after giving him multiple doses of heparin. The initial dose was 6500 and overall 47697 units of heparin was given and ACT was 232. The sheath was taken out and an Angio-Seal device used to secure hemostasis. Excellent angiographic result without complication was achieved. Results were discussed with the patient as well as his and he was sent to the room in a stable condition. The right radial site had a pressure bandage applied. MMODL / IJN: [id number] /
[2024-06-25] MEDS: ASPIRIN 325 MG TAB PO STA (14:48)
[2024-06-25] MEDS: SODIUM CHLORIDE 0.9% 1,000 ML IV SCH (15:22)
[2024-06-25 19:10] VITALS: RESP 17
[2024-06-25] MEDS: ATORVASTATIN 80 MG TAB PO SCH (20:38)
[2024-06-26] MEDS: METOPROLOL TARTRATE 50 MG TAB PO SCH (03:40)
[2024-06-26] MEDS: APIXABAN 5 MG TAB PO SCH (08:00)
[2024-06-26 08:14] VITALS: BP 149/77; PULSE 60; TEMP 98.2
[2024-06-26 08:23] LABS: Basophils # (A) 0.03 X 10*3/uL (0.00-0.10); Basophils % (A) 0.6 %; Eosinophils # (A) 0.32 X 10*3/uL (0.04-0.35); Eosinophils % (A) 5.9 %; HCT 32.7 % (39.6-50.0); Lymphocytes # (A) 0.98 X 10*3/uL (0.90-5.00); MCH 33.6 pg (27.0-32.0); MCHC 33.6 g/dL (32.0-37.0); Monocytes % (A) 12.8 %; NRBC Per 100 WBC 0 X 10*3/uL (0.00-0.01); Neutrophils % (A) 62.3 %; Platelet Count 166 X 10*3/uL (140-440); RBC 3.27 X 10*6/uL (4.40-5.60); RDW 13.4 % (11.5-14.5); WBC 5.45 X 10*3/uL (4.50-10.00)
[2024-06-26] MEDS: LOSARTAN 25 MG TAB PO SCH (08:38)
[2024-06-26] MEDS: DAPAGLIFLOZIN PROPANEDIOL 5 MG TABLET PO SCH (08:38)
[2024-06-26] MEDS: FUROSEMIDE 40 MG TAB PO SCH (08:38)
[2024-06-26] MEDS: CLOPIDOGREL 75 MG TAB PO SCH (08:38)
[2024-06-26] MEDS: ASPIRIN 81 MG PO SCH (08:38)
[2024-06-26] MEDS: AMIODARONE 100 MG TAB PO SCH (08:39)
[2024-06-26 08:43] LABS: BUN/Creat Ratio 14.08 Ratio (12.00-20.00); Blood Urea Nitrogen 16.9 mg/dL (9.0-27.0); Calcium 8.5 mg/dL (8.7-10.3); Chloride 102 mmol/L (96-109); Glucose 108 mg/dL (70-110); Potassium 3.8 mmol/L (3.5-5.5); Sodium 143 mmol/L (135-145)
--- NOTE | 2024-06-26 10:40 | DS ---
DISCHARGE SUMMARY DIAGNOSES: 1. Coronary artery disease with unstable angina and positive stress test. 2. Hypertension. 3. Hyperlipidemia. 4. Type 2 diabetes with chronic kidney disease and creatinine in the range of 1.6. PROCEDURES PERFORMED: Left heart catheterization, coronary angiography, and PTCA and stenting of a very calcified, dominant RCA in 2 areas with good result and intravascular ultrasound of right coronary artery. HOSPITAL COURSE: The patient was admitted because of an abnormal stress test and previous multivessel PCI. In 2014, he had stenting of mid LAD and distal RCA performed. Because of positive stress test, I performed a cardiac cath which revealed that the LAD stent was patent without significant disease but calcified. Circumflex was nondominant without significant disease. RCA had a new lesion in the midportion of 90% and also in the distal portion beyond the stent and also at the distal end of the stent of about 80% to 90%. The distal lesion was heavily calcified. He had 2 stents deployed, both of these were 3.5 caliber and 15 mm length. The distal stent was postdilated with a 3.5 balloon and a proximal stent with a 4.0 balloon. Both of these were NC Trek balloon. Excellent angiographic result was achieved. IVUS revealed good stent expansion and apposition. Postprocedure course was uneventful. Creatinine today is 1.2, platelet count and CBC are good. He is feeling better. Both cath sites from the right radial which I attempted and right femoral are good, clean and dry without any issue, pulse is good. Patient will be discharged today and he will be seen in my office on the 02 of July at 8:30 a.m. Discharge instructions were given. Prescriptions were sent. He will be on aspirin, Plavix and Eliquis for 3 weeks and I will discontinue the aspirin at that point. Discharge instructions were given. He will be discharged later on today. He has some issues with mobility and I am requesting physical therapy and a walker to help facilitate his ambulation. He will also have a BMP checked and the blood test will be performed on June 30Sunday, prior to his office visit. Discharge instructions were given and I will will be seen in the office on Jul 02 2024. MMODL / BRANDENN: [id number] / SANDY
[2024-06-28] MEDS ORDERED: metFORMIN 500 MG TAB PO SCH (07:30)
== END 2024-06-26 13:48 | disposition home or self-care (01) ==
LOC: CATHCVL 06:03 → 6NMEDSUR 09:18 → CATHCVL 06-26 13:48
PROVIDERS: ATTEND Internal Medicine Interventional Cardiology
DX: I25.10 Atherosclerotic heart disease of native coronary artery without angina pectoris
CPT/HCPCS: 80048; 85025; 92978; 93458